=== PATIENT | male | born 1970 | race Caucasian/White ===

== ENCOUNTER 2019-09-01 08:32 | Inpatient (IN) ==
--- NOTE | 2019-08-15 10:39 | PAT Medication Instructions ---
Medication Instructions Date of Service August 15, 2019 Home Medications acetaminophen 650 mg PO Q12H PRN albuterol sulfate [Ventolin HFA] 2 puff INHALATION DAILY PRN baclofen 20 mg PO HS levothyroxine 137 mcg PO QAM multivitamin 1 tab PO QDD Take morning of surgery With a small sip of water, OTHERWISE NOTHING TO EAT OR DRINK AFTER MIDNIGHT: acetaminophen 650 mg PO Q12H PRN (okay to take up to 4 hours prior to surgery if needed) albuterol sulfate [Ventolin HFA] 2 puff INHALATION DAILY PRN (use if needed; please bring with you to hospital day of surgery if possible) levothyroxine 137 mcg PO QAM Take evening before surgery acetaminophen 650 mg PO Q12H PRN (if needed) albuterol sulfate [Ventolin HFA] 2 puff INHALATION DAILY PRN (if needed) baclofen 20 mg PO HS multivitamin 1 tab PO QDD Other Notes If you have any questions please call us at [phone] or [phone] or [phone] or [phone]
--- NOTE | 2019-08-18 09:35 | Anesthesiology Consultation ---
Date of Service August 18, 2019 Assessment & Plan (1) Encounter for pre-operative examination: Chart Review Chart Review: Pending: Refer to Additional Notes / Consult section (pending preop testing (labs, EKG, CXR)) and Patient seen in Pre Admission Testing Teaching & Discussion Pre-Anesthesia Teaching/Discussion Notes: Instructed NPO after midnight before surgery,except medications with 15 cc of water. Medication instructions provid ed according to the PAT guidelines. History Surgery Operation Date: 09/01/19 13:05 Proposed Procedures p L5-S1 Decompression and Fusion with Spinal Cord Monitoring - Topher Cervantes, DO Height/Weight Height: 5 ft 11 in Weight: 73.2 kg Allergies Allergy/AdvReac Type Severity Reaction Status Date / Time codeine AdvReac Unknown NAUSEA AND Verified 08/13/19 11:59 VOMITING Medications Home Medications Medication Instructions Recorded Confirmed Last Taken acetaminophen 650 mg PO Q12H PRN 08/13/19 08/13/19 Unknown albuterol sulfate [Ventolin HFA] 2 puff INHALATION DAILY PRN 08/13/19 08/13/19 Unknown baclofen 20 mg PO HS 08/13/19 08/13/19 Unknown levothyroxine 137 mcg PO QAM 08/13/19 08/13/19 Unknown multivitamin 1 tab PO QDD 08/13/19 08/13/19 Unknown Past Medical History Medical History Chronic back pain Chronic obstructive pulmonary disease stable Degenerative disc disease Hypothyroidism Exercise / Class Metabolic Activity III < 4 Walking/Shop/Light housework Past Family History Family History Aunt Family hx of colon cancer Father FHx: heart disease Grandfather (Paternal) FHx: heart disease Grandmother (Paternal) FHx: heart disease Grandfather (Maternal) FHx: lung cancer Grandmother (Maternal) FHx: lung cancer Past Surgical History Surgical History History of open reduction and internal fixation (ORIF) procedure LEFT FEMUR - CHILD Hx of nasal septoplasty Past Anesthesia History No Hx of Anesthesia Complications and No Family Hx of Anesthesia Complications History of PONV No Hx of PONV and No Hx of Motion Sickness Social History Smoking Status: Current every day smoker tobacco type: cigarettes Do You Dip or Chew Tobacco: No Smoking End Date: 1 PACK/DAY HX-- ATTEMPTING TO QUIT (DOWN TO 1/2 PPD) Hx Alcohol Use: Yes alcohol intake frequency: holidays/special occasions only Hx Substance Use: No Review of Systems Patient denies chest pain, shortness of breath, reflux, cough, wheezing, palpitations. Physical Exam Vital Signs VITALS BP 112/66 P 64 TEMP 98.2 SP02 99%RA RESP 20 PHYSICAL Full neck and c-spine range of motion. Full TMJ range of motion. TMD 3 finger breaths Mallampati Score 2 Dentition: upper front right rotted/several missing teeth, poor dentition Lungs: clear throughout to auscultation Cardiac: regular rate and rhythm, no murmurs noted Spine: normal Carotid arteries: negative bruit Extremities: no edema Trimmed mackenzie
--- NOTE | 2019-08-18 11:04 | XRay Report ---
XR chest Pre-admission PA/Lat CLINICAL HISTORY: 48 years-old Male presenting with preoperative assessment. TECHNIQUE: PA and lateral views of the chest were obtained. COMPARISON: None. FINDINGS: Cardiomediastinal silhouette normal. Lungs are hyperinflated. No focal opacity. No pleural effusion o r pneumothorax. Degenerative changes of the thoracic spine. Upper abdomen normal. IMPRESSION: 1. Findings suggest emphysema. No focal infiltrate to suggest pneumonia. Electronically signed by: Ori Quiroz M.D. 08/18/2019 11:03 AM
[2019-08-18 11:18] LABS: Basophils # (auto) 0.06 K/uL (0-0.2); Basophils % (auto) 0.8 %; Eosinophils # (auto) 0.32 K/uL (0-0.5); Eosinophils % (auto) 4.1 %; Hematocrit (blood only) 45.8 % (42-52); Hemoglobin 16.1 g/dL (14.0-18.0); Immature Granulocytes # (auto) 0.01 K/uL (0.00-0.02); Immature Granulocytes % (auto) 0.1 %; Lymphocytes # (auto) 2.74 K/uL (1.2-3.4); Lymphocytes % (auto) 35.2 %; Mean Corpuscular Hemoglobin 33.9 pg (25-34); Mean Corpuscular Hgb Conc 35.2 g/dL (32-36); Mean Corpuscular Volume 96.4 fL (80-100); Mean Platelet Volume 9.5 fL (7.4-10.4); Monocytes # (auto) 0.58 K/uL (0.11-0.59); Monocytes % (auto) 7.5 %; Neutrophils # (auto) 4.07 K/uL (1.4-6.5); Neutrophils % (auto) 52.3 %; Platelet Count 278 K/uL (130-400); Red Blood Count 4.75 M/uL (4.7-6.1); White Blood Count 7.78 K/uL (4.8-10.8)
[2019-08-18 11:18] LABS: Appearance Urine Clear (Clear); Bilirubin Urine Negative (Negative); Blood Urine Negative (Negative); Color Urine Yellow; Glucose Urine UA Negative (Negative); Ketones Urine Negative (Negative); Leukocyte Esterase Urine Negative (Negative); Nitrite Urine Negative (Negative); Protein Urine Negative (Negative); Specific Gravity Urine 1.017 (1.000-1.030); Urobilinogen Urine Negative (Negative)
[2019-08-18 11:26] LABS: BUN Creatinine Ratio 13.5 (10-20); Calcium 9.2 mg/dl (8.5-10.1); Est GFR (African American) 87.4; Est GFR (Non-African American) 75.4
[2019-08-18 11:29] LABS: INR 1.1 (0.9-1.1); Partial Thromboplastin Time 26.9 Seconds (21.0-31.0); Prothrombin Time 11.2 Seconds (9.0-12.0)
[~2019-09-01 08:32] MED LIST: ACETAMINOPHEN 500 MG TAB PO SCH; CEFAZOLIN 2000MG 2,000 MG/15 ML SYR IV SCH; CeleBREX 200 MG CAP PO SCH; GABAPENTIN 900 MG DOSE PO SCH; LR 15ML/HR IV SCH
[2019-09-01] MEDS ORDERED: ePHEDrine sulfate 50 MG/ML AMP IV PRN (09:14)
[2019-09-01] MEDS ORDERED: MoRPHine SULFATE 10 MG/ML CARP/VIAL IV PRN (09:14)
[2019-09-01] MEDS ORDERED: ATROPINE SULFATE 0.1 MG/ML 10ML SYR IV PRN (09:14)
[2019-09-01] MEDS ORDERED: ONDANSETRON INJ 2 MG/ML 2 ML VIAL IV PRN ×2 (09:14→14:23)
--- NOTE | 2019-09-01 10:54 | History & Physical Report ---
Date of Service September 01, 2019 Assessment & Plan (1) Neurogenic claudication due to lumbar spinal stenosis: L5-S1 decompression and fusion Present on Admission?: Yes History of Present Illness Chief Complaint: Back and leg pain Primary Care Provider: Leroy Courtney This is a 49-year-old male presents with chronic persistent back and leg pain. After failing extensive course of nonoperative care is here for surgical intervention. Allergies Allergy/AdvReac Type Severity Reaction Status Date / Time codeine AdvReac Unknown NAUSEA AND Verified 08/13/19 11:59 VOMITING Home Medications Home Medications Medication Instructions Recorded Confirmed Type acetaminophen 650 mg PO Q12H PRN 08/13/19 09/01/19 History albuterol sulfate [Ventolin HFA] 2 puff INHALATION DAILY PRN 08/13/19 09/01/19 History baclofen 20 mg PO HS 08/13/19 09/01/19 History levothyroxine 137 mcg PO QAM 08/13/19 09/01/19 History multivitamin 1 tab PO QDD 08/13/19 09/01/19 History Past Med/Surg History Medical History Chronic back pain Chronic obstructive pulmonary disease stable Degenerative disc disease Hypothyroidism Surgical History History of open reduction and internal fixation (ORIF) procedure LEFT FEMUR - CHILD Hx of nasal septoplasty Family History Aunt Family hx of colon cancer Father FHx: heart disease Grandfather (Paternal) FHx: heart disease Grandmother (Paternal) FHx: heart disease Grandfather (Maternal) FHx: lung cancer Grandmother (Maternal) FHx: lung cancer Social History Preferred Language: Gabonese Communication Ability: Effective Beliefs That Will Affect Care: None Current Living Situation: Spouse Feels Safe at Home: Yes Safety Concerns: Feels Safe At This Time Smoking Status: Current every day smoker Tobacco Type: cigarettes ; Do You Dip or Chew Tobacco: No ; Smoking End Date: 1 PACK/DAY HX-- ATTEMPTING TO QUIT (DOWN TO 1/2 PPD) ; Second Hand Exposure: Yes ( SMOKES) ; Hx Alcohol Use: Yes Hx Substance Use: No Physical Exam Physical Exam: Patient is alert and oriented neurologically intact. Results & Data Vital Signs (Past 12 Hours) Vital Signs Temp Pulse Resp BP Pulse Ox 09/01/19 09:10 36.5 C 74 20 142/82 H 99
--- NOTE | 2019-09-01 10:54 | History & Physical Bridge Note ---
Date of Service September 01, 2019 History & Physical Bridge Note I have examined the patient, reviewed the History & Physical and in the interval since the performance of the History & Physical I have noted the following changes of clinical significance: no changes noted
[2019-09-01] MEDS ORDERED: BACITRACIN INJ 50,000 UNIT VIAL ONE (11:04)
[2019-09-01] MEDS ORDERED: BUPIVACAINE/EPINEPHRINE 0.25% 1:200,000 30 ML VIAL ONE (11:04)
[2019-09-01] MEDS ORDERED: MIDAZOLAM HCL 1 MG/ML 2ML VIAL ONE (11:13)
[2019-09-01] MEDS ORDERED: HYDROmorphone INJ 2 MG/ML SYR/VIAL ONE (11:13)
[2019-09-01] MEDS ORDERED: fentaNYL citrate 100 MCG/2 ML VIAL ONE (11:13)
[2019-09-01] MEDS ORDERED: DEXAMETHASONE SOD INJ 4 MG/ML VIAL ONE (12:28)
[2019-09-01] MEDS ORDERED: ROCURONIUM BROMIDE 10 MG/ML 5 ML VIAL ONE (12:28)
[2019-09-01] MEDS ORDERED: ONDANSETRON INJ 2 MG/ML 2 ML VIAL ONE (12:28)
--- NOTE | 2019-09-01 13:02 | Operative Report ---
Post Operative Report Pre & Post Diagnosis Operation Date: 09/01/19 10:25 Pre-Op Diagnosis: Lumbar spinal stenosis with radiculopathy Post-Op Diagnosis: Same I identified the patient and participated in the time-out.: Yes Procedure Operation Date: 09/01/19 10:25 Actual Procedures #1 lumbar decompression with bilateral medial facetectomies foraminotomies L5- S1. #2 posterior spinal fusion L5-S1. #3 placement posterior instrumentation L5-S1 per #4 placement of peek cage 11 x 26 mm at L5-S1 per #6 placement of locally harvested morselized autograft in the posterior lateral gutters. #7 placement infuse collagen sponge combined mass graft in the posterior lateral gutters and ostial amp and interbody space. Surgeon Topher Cervantes DO Supervisor [employer] Julienne Dominguez Estimated Blood Loss 100 Findings Consistent with Post-Op Diagnosis Specimens None Indications This is a 49-year-old male who presents with chronic persistent back and leg pain. After failing extensive course of nonoperative care is here for surgical intervention. Description of Procedure Patient was met with identified and informed consent obtained. Patient was then taken to the operative suite underwent intubation placed in a prone position on the Bautista table on top of the Esau frame. All bony prominences well-padded eyes inspected to ensure no external pressure placed upon but this point the lumbar spine was prepped and draped in normal sterile fashion. Sharp dissection with the assistance of Bovie cautery was then performed down to and exposing the lamina and transverse processes of L5 and the sacral ala bilaterally. From a caudal cephalad fashion complete laminectomy of L5 was performed including medial facetectomies and foraminotomies addressing all stenosis. Pedicle screws were then placed in L5 and S1 levels with the assistance of fluoroscopy and appropriate size roel placed. By way of a trans-foraminal approach on left complete discectomy of L5-S1 is performed endplates curetted to subcortical being bone and a 11 x 26 mm peek cage filled with ostium bone graft tapped in position. The rods were then locked in final position bilaterally. The transverse processes of L5 and sacral ala bur to subcortical bleeding bone. Infuse collagen sponge master graft and local autograft was placed in the posterior lateral gutters. 15 round ARLEY drain inserted. Incision was then closed with 1 Vicryl in the fascia 2-0 Vicryl subcutaneously in 4 Monocryl for final skin closure. Steri-Strip sterile dressings placed. Patient awakened taken to PACU stable condition. Please note Julienne Dominguez present all the entire procedure involved the patient positioning complex portions of the surgery and final skin closure. Lastly spinal cord monitoring was utilized that the procedure no changes noted. I attest to the content of the Intraoperative Record and any orders documented therein. Any exceptions are noted below.
--- NOTE | 2019-09-01 13:20 | Fluoroscopy Report ---
FL lumbar spine 2-3V HISTORY: 49 years-old Male L5-S1 DECOMPRESSION AND FUSION chronic low back pain COMPARISON: Chest radiographs 08/18/2018 TECHNIQUE: 2 spot fluoroscopic images of the lumbar spine were obtained utilizing 21.0 seconds fluoro scopy time FINDINGS: Laminectomy with discectomy, posterior interbody roel and screw fusion at L5-S1. Satisfactory alignmen t. Hardware appears intact. Multilevel spondylitic spurring. No opaque foreign body. IMPRESSION: Fluoroscopic assistance as above. Please see operative report for further details. The above report was generated using voice recognition software. It may contain grammatical, syntax o r spelling errors. Electronically signed by: Sukhdeep Pat M.D. 09/01/2019 1:19 PM
[2019-09-01] MEDS ORDERED: NEOSTIGMINE METHYLSULFATE 1 MG/ML 10ML VIAL ONE (13:35)
[2019-09-01] MEDS ORDERED: GLYCOPYRROLATE 0.2 MG/ML VIAL ONE (13:35)
[2019-09-01] MEDS ORDERED: PROPOFOL IV EMULSION 10 MG/ML 20 ML VIAL IV ONE (13:35)
[2019-09-01] MEDS: fentaNYL citrate 100 MCG/2 ML VIAL IV PRN ×2 (13:39→13:44)
--- NOTE | 2019-09-01 14:08 | Anesthesiology Progress Note ---
Date of Service September 01, 2019 Anesthesia Post Procedure Vital Signs Vital Signs: Temp Pulse Pulse Resp BP BP Pulse Ox 09/01/19 14:00 97.5 F L 65 14 124/70 99 09/01/19 13:50 69 16 130/66 100 09/01/19 13:40 57 L 16 120/68 100 09/01/19 13:30 55 L 16 115/63 98 09/01/19 13:20 98.1 F 62 16 121/78 99 09/01/19 09:10 97.7 F 74 20 142/82 H 99 Pain Intensity Back: Pain Intensity: 2 Transfer of Care Handoff Completed per policy Notes Mental Status: alert / awake / arousable and participated in evaluation Patient Amnestic to Procedure: Yes Nausea / Vomiting: adequately controlled Pain: adequately controlled Airway Patency, RR, SpO2: stable & adequate BP & HR: stable & adequate Hydration State: stable & adequate Anesthetic Complications: no major complications apparent and Pt Satisfied with anesthetic care
[2019-09-01] MEDS ORDERED: METOCLOPRAMIDE HCL INJ 5 MG/ML 2 ML VIAL IV PRN (14:23)
[2019-09-01] MEDS ORDERED: DO NOT ADMINISTER PNEUMOCOCCAL VACCINE PRN (14:23)
[2019-09-01] MEDS ORDERED: FAMOTIDINE 20 MG TAB PO PRN (14:23)
[2019-09-01] MEDS ORDERED: HYDROmorphone INJ 1 MG/ML SYRINGE IV PRN (14:23)
[2019-09-01] MEDS ORDERED: BISACODYL 10 MG SUPP PR PRN (14:23)
[2019-09-01] MEDS ORDERED: MAGNESIUM HYDROXIDE SUSP 30 ML UDC PO PRN (14:23)
[2019-09-01] MEDS ORDERED: HYDROmorphone INJ 0.5 MG/0.5 ML SYR IV PRN (14:23)
[2019-09-01] MEDS ORDERED: ALUMINUM/MAGNESIUM SUSP 30 ML UDC PO PRN (14:23)
[2019-09-01] MEDS ORDERED: LORazepam 0.5 MG TAB PO PRN (14:23)
[2019-09-01] MEDS ORDERED: NALOXONE HCL 0.4 MG/1 ML VIAL/CARP IV PRN (14:23)
[2019-09-01] MEDS ORDERED: LACTATED RINGER'S 1,000 ML IV SCH (14:23)
[2019-09-01] MEDS ORDERED: TRAMADOL HCL 50 MG TABLET PO PRN (14:23)
[2019-09-01] MEDS ORDERED: DO NOT ADMINISTER FLU VACCINE PRN (14:23)
[2019-09-01] MEDS ORDERED: LORazepam 0.5 MG/1 ML VIAL IV PRN (14:23)
[2019-09-01] MEDS ORDERED: ACETAMINOPHEN 1,000 MG/100 ML VIAL IV PRN (14:23)
[2019-09-01] MEDS ORDERED: ONDANSETRON 4 MG OD TAB PO PRN (14:23)
[2019-09-01] MEDS ORDERED: PROMETHAZINE HCL 12.5 MG in SODIUM CHLORIDE 0.9% 50 ML IV PRN (14:23)
[2019-09-01] MEDS ORDERED: SOD PHOSPHATE/SOD BIPHOSPHATE ENEMA 132 ML BTL PR PRN (14:23)
[2019-09-01] MEDS ORDERED: ALBUTEROL HFA 8 GM INHALER INH PRN (14:23)
[2019-09-01] MEDS: KETOROLAC 30 MG/ML VIAL IV SCH ×2 (15:06→20:48)
[2019-09-01] MEDS: CEFAZOLIN 2000MG 2,000 MG/15 ML SYR IV SCH (18:34)
[2019-09-01] MEDS: MULTIVITAMIN TAB PO SCH (18:34)
[2019-09-01] MEDS: DOCUSATE SODIUM/SENNA 50/8.6MG TAB PO SCH (20:48)
[2019-09-02] MEDS: KETOROLAC 30 MG/ML VIAL IV SCH ×2 (03:23→07:52)
[2019-09-02] MEDS: CEFAZOLIN 2000MG 2,000 MG/15 ML SYR IV SCH (03:23)
[2019-09-02] MEDS: POLYETHYLENE (MIRALAX) 17 GM PACK PO SCH ×3 (05:33→18:34)
[2019-09-02 05:58] LABS: Basophils # (auto) 0.02 K/uL (0-0.2); Basophils % (auto) 0.1 %; Eosinophils # (auto) 0.12 K/uL (0-0.5); Eosinophils % (auto) 0.7 %; Hematocrit (blood only) 39.3 % (42-52); Hemoglobin 13.4 g/dL (14.0-18.0); Immature Granulocytes # (auto) 0.04 K/uL (0.00-0.02); Immature Granulocytes % (auto) 0.2 %; Lymphocytes # (auto) 2.29 K/uL (1.2-3.4); Lymphocytes % (auto) 13.9 %; Mean Corpuscular Hemoglobin 32.8 pg (25-34); Mean Corpuscular Hgb Conc 34.1 g/dL (32-36); Mean Corpuscular Volume 96.3 fL (80-100); Mean Platelet Volume 9.2 fL (7.4-10.4); Monocytes # (auto) 1.44 K/uL (0.11-0.59); Monocytes % (auto) 8.8 %; Neutrophils # (auto) 12.54 K/uL (1.4-6.5); Neutrophils % (auto) 76.3 %; Platelet Count 256 K/uL (130-400); RDW Coefficient of Variation 13.8 % (11.5-14.5); RDW Standard Deviation 48.8 fL (36.4-46.3); Red Blood Count 4.08 M/uL (4.7-6.1); White Blood Count 16.45 K/uL (4.8-10.8)
[2019-09-02 06:26] LABS: BUN Creatinine Ratio 13.7 (10-20); Calcium 9.1 mg/dl (8.5-10.1); Est GFR (African American) 90.6; Est GFR (Non-African American) 78.2; Potassium 4.1 mmol/L (3.5-5.1)
[2019-09-02] MEDS: LEVOTHYROXINE SODIUM 137 MCG TABLET PO SCH (07:52)
--- NOTE | 2019-09-02 08:11 | Anesthesiology Progress Note ---
Date of Service September 02, 2019 Anesthesia Post Procedure Vital Signs Vital Signs: Temp Pulse Pulse Resp BP BP Pulse Ox 09/02/19 07:03 36.6 C 71 16 111/62 98 09/02/19 03:25 36.6 C 67 18 108/62 99 09/01/19 23:17 36.5 C 53 L 18 112/62 98 09/01/19 22:14 122/68 09/01/19 17:22 36.3 C L 52 L 16 99 09/01/19 16:35 36.4 C L 62 16 109/69 100 09/01/19 15:23 35.9 C L 51 L 16 107/59 L 99 09/01/19 14:53 36.4 C L 57 L 17 107/63 100 09/01/19 14:00 36.4 C L 65 14 124/70 99 09/01/19 13:50 69 16 130/66 100 09/01/19 13:40 57 L 16 120/68 100 09/01/19 13:30 55 L 16 115/63 98 09/01/19 13:20 36.7 C 62 16 121/78 99 09/01/19 09:10 36.5 C 74 20 142/82 H 99 Notes Mental Status: alert / awake / arousable and participated in evaluation Nausea / Vomiting: adequately controlled Pain: adequately controlled Airway Patency, RR, SpO2: stable & adequate BP & HR: stable & adequate Hydration State: stable & adequate Anesthetic Complications: no major complications apparent
--- NOTE | 2019-09-02 10:34 | Orthopedic Progress Note ---
Date of Service September 02, 2019 Assessment & Plan (1) Neurogenic claudication due to lumbar spinal stenosis: This time continue physical therapy advance his bowel regimen anticipate discharge home in the next few days. Present on Admission?: Yes Subjective Patient's back pain is controlled leg symptoms markedly improved. Physical Exam Physical Exam: Patient is sitting at the start the bed. Is good strength testing. Appears comfortable. Results & Data Vital Signs (Past 12 Hours) Vital Signs Temp Pulse Resp BP Pulse Ox 09/02/19 07:03 36.6 C 71 16 111/62 98 09/02/19 03:25 36.6 C 67 18 108/62 99 09/01/19 23:17 36.5 C 53 L 18 112/62 98
[2019-09-02] MEDS: ACETAMINOPHEN 500 MG TAB PO PRN ×2 (15:44→23:45)
[2019-09-02] MEDS: MULTIVITAMIN TAB PO SCH (18:34)
[2019-09-02] MEDS: DOCUSATE SODIUM/SENNA 50/8.6MG TAB PO SCH (20:34)
[2019-09-02] MEDS: OXYCODONE HCL IR 5 MG TAB (IMMEDIATE RELEASE) PO PRN (20:35)
[2019-09-03] MEDS: LEVOTHYROXINE SODIUM 137 MCG TABLET PO SCH (06:10)
[2019-09-03] MEDS: OXYCODONE HCL IR 5 MG TAB (IMMEDIATE RELEASE) PO PRN (06:45)
--- NOTE | 2019-09-03 09:17 | Discharge Summary ---
Date of Service September 03, 2019 Admission HPI Per Admitting Provider This is a 49-year-old male presents with chronic persistent back and leg pain. After failing extensive course of nonoperative care is here for surgical intervention. Principal Diagnosis Lumbar spinal stenosis with radiculopathy Discharge Data Allergies Allergy/AdvReac Type Severity Reaction Status Date / Time codeine AdvReac Unknown NAUSEA AND Verified 08/13/19 11:59 VOMITING Consultations 09/01/19 14:23 Consult Case Management - Discharge Planning Routine Procedures Performed Operation Date: 09/01/19 10:25 Actual Procedures p L5-S1 Decompression and Fusion with Spinal Cord Monitoring, Placement of Interbody in L5-S1, Application of Bone Morphogenetic Protein and Allograft - Topher Cervantes DO Ordered Studies 09/01/19 07:00 FL fluoroscopy <1hr Routine [place] lumbar spine 2-3V Routine Hospital Course (1) Neurogenic claudication due to lumbar spinal stenosis: Patient underwent lumbar decompression fusion tolerated as well as taken orthopedic for postoperative. Postop day 1 is up ambulating well leg symptoms improved. Postop #2 strength is intact ARLEY drain decreasing appropriately. Subsequently discharged home. Discharge orders instructions from the chart for further review. Total Time Total Time Spent Total Time Spent (In Minutes): 20 minutes Discharge Plan Discharge Items Patient Disposition: Home - Self-Care Reason For Visit: Other Interverebral Disc Degeneration, Lumbar Discharge Diagnosis: Lumbar spinal stenosis with neurogenic claudication Activity: As commented below Non-emergency contact: Primary Care Provider Call non-emergency contact if: you have any medication questions Follow-up/Referrals: Leroy Courtney [Primary Care Provider] - Diet: Regular Addtl Attending Provider Instructions: ACTIVITY RECOMMENDATIONS: SELF CARE INSTRUCTIONS AFTER THORACIC/LUMBAR FUSIONS 1. You may walk to your tolerance. It is good exercise for your legs and back. Expect some back and intermittent leg aches and pains. 2. You may perform "counter-top" level activities (make a sandwich, clari with a project, etc.). 3. No bending or lifting of more than 10 pounds or back twisting of any nature (roll like a log when turning in bed). 4. You may ride in a car for 20-30 minutes at a time. No driving until after your first visit with your doctor. 5. Frequent changes of position and restricting sitting to 30 minutes at a time will help limit the amount of back spasms and stiffness you may experience. 6. You may discontinue the use of ambulatory aids (cane, crutches, etc.) once your strength and confidence allow. 7. You may sprinkler tender the shower and let water strike your incision when you arrive home at least once daily. Do not take a tub bath, sit in a hot tub or go into a swimming pool until after your first recheck in the office. SPECIAL CARE INSTRUCTIONS: VERY IMPORTANT TO READ AND REVIEW A. Your surgical incision has been closed with a cosmetic suture under the skin that will dissolve in about 6 weeks. In 14 days, you can use a pair of clean scissors and cut the suture that is left outside of the skin at the ends of your incision. 1. The small skin tapes can be removed 7 days after surgery if they have not fallen off by that point. 2. You may keep the wound open to air as much as possible to promote healing after post-op day number 5 unless told otherwise by your doctor. 3. If you think the wound looks like it is becoming infected (redness or worsening drainage) and/or you are experiencing fever, chill or worsening back pain and muscle spasms, contact the office so that we may evaluate you as soon as possible. B. Complications are uncommon, but please contact us if you have any signs or symptoms of: 1. wound infection (fever higher than 102.5 degrees F, redness, separation of wound, drainage, or increasing pain from the incision) 2. blood clots in legs (pain, swelling, redness and warmth in legs) 3. urinary tract infection (fever higher than 102.5 degrees F, burning upon urination or increased frequency of urination) 4. nerve problems (inability to walk on your toes or heels, numbness, loss of bowel or bladder control) 5. any other symptoms that concern you C. Please call the office at if you have any concerns or questions about your operation or recovery. D. No smoking! Smoking drastically decreases the chance of a solid fusion. E. Do not take any anti-inflammatory medications (Indocin, Advil, Motrin, Aspirin, Naprosyn, etc.) as these may inhibit the chance of a solid fusion. Tylenol is okay to take for pain. MANAGING PAIN AFTER SPINAL SURGERY 1. Narcotic medication is intended for short-term use and will be provided for surgical pain. Surgical pain usually lasts for a period of 4-6 weeks. Narcotic medication includes Percocet, Vicodin, Darvocet, Tylenol #3 or Lortab. 2. Longer-term pain is more appropriately treated with non-narcotic medication such as Tylenol ES. 3. Muscle spasm is not appropriately treated with narcotics. Muscle relaxers such as Soma, Flexeril or Skelaxin can be used along with Tylenol ES. 4. Remember that we all live with some "aches and pains". This is not unusual or uncommon after an injury or as we get older. a. Back pain is expected and may include muscle spasms for 4 to 6 weeks after surgery. The pain should gradually improve. If the pain worsens for no apparent reason, please contact the office. b. Intermittent leg pain may also be experienced and should not be concerned about unless it worsens for no apparent reason. If so, please contact the office. 5. We will provide appropriate medication within the normal guidelines of their prescribed use. We will also be very cautious and aware of potential abuse and extended duration of patients' medication needs. a. Pain medications are for your comfort and to assist with sleep and rest so that the tissue can heal. They are not provided in order to return to normal activity and should not be used through the day. To do so or worsening pain at night can result from ongoing tissue damage and development of tolerance to the prescribed medicine. 6. Please allow 2-3 days to process refills. Prescriptions will not be mailed but must be picked up at the office. FOLLOW UP VISIT: Keep your scheduled follow-up appointment. Any questions, please call the office at . Pending Studies at Discharge: No Stand-Alone Forms: My [facility] Browsy, Smoking Cessation Medications and DC Order Prescriptions: New tramadol 50 mg tablet 50 mg PO Q6H PRN (Reason: pain, moderate) Qty: 30 RF: 0 oxycodone 5 mg tablet 5 mg PO Q6H PRN (Reason: pain, severe) Qty: 30 RF: 0 Continued levothyroxine 137 mcg Tablet 137 mcg PO QAM RF: 0 baclofen 20 mg Tablet 20 mg PO HS RF: 0 albuterol sulfate [Ventolin HFA] 90 mcg/actuation Hfa Aerosol Inhaler 2 puff INHALATION DAILY PRN (Reason: COPD) RF: 0 multivitamin Tablet 1 tab PO QDD RF: 0 acetaminophen 650 mg Tablet Extended Release 650 mg PO Q12H PRN (Reason: Pain) RF: 0 Discharge Orders: Discharge Order (Routine); Ordered 09/03/19 Ordered By: Topher Cervantes Admission Data Admit Date/Time: 09/01/19 14:23 Attending Provider: Topher Cervantes Admit Provider: Topher Cervantes Primary Care Provider: Leroy Courtney
== END 2019-09-03 13:00 | disposition home or self-care (01) | DRG 460 ==
LOC: ASU 08:32 → 3E 14:23